=== PATIENT | female | born 1970 | race Caucasian/White ===

== ENCOUNTER 2021-02-20 09:15 | Inpatient (IN) | payer OTHER ==
[~2021-02-20] VITALS: Ht 175.3 cm; Wt 126.0 kg
[2021-02-20 14:45] LABS: BASOPHILS # (AUTO) 0.1 X10'3 (0-0.2); BASOPHILS % (AUTO) 0.8 % (0-1); EOSINOPHILS # (AUTO) 0.1 X10'3 (0-0.9); EOSINOPHILS % (AUTO) 1.5 % (0-6); LYMPHOCYTES # (AUTO) 2.7 X10'3 (1.1-4.8); MEAN CORPUSCULAR HEMOGLOBIN 28.3 PG (27.0-31.0); MEAN CORPUSCULAR HGB CONC 33.8 g/dL (33.0-36.5); MEAN CORPUSCULAR VOLUME 83.5 FL (78-98); MEAN PLATELET VOLUME 6.9 FL (7.4-10.4); MONOCYTES # (AUTO) 0.4 X10'3 (0-0.9); MONOCYTES % (AUTO) 5.3 % (2-12); NEUTROPHILS # (AUTO) 3.4 X10'3 (1.8-7.7); NEUTROPHILS % (AUTO) 51.4 % (42-75); PRE OP HEMATOCRIT 39.9 % (35.0-45.0); PRE OP HEMOGLOBIN 13.5 g/dL (12.0-16.0); PRE OP PLATELET COUNT 498 X10'3 (140-440); RED BLOOD COUNT 4.78 X10'6 (4.20-5.60); RED CELL DISTRIBUTION WIDTH 13.9 % (11.5-14.5)
[2021-02-20] MEDS ORDERED: LISI20TA28 PO (14:55)
[2021-02-20] MEDS ORDERED: IBUP-1984 PO (14:55)
[2021-02-20] MEDS ORDERED: HYDR-3965 PO (14:55)
[2021-02-20] MEDS ORDERED: HYDR12.55 PO (14:55)
[2021-02-20] MEDS ORDERED: CELE-193 PO (14:55)
[2021-02-20 14:57] LABS: ALBUMIN 3.7 G/DL (3.4-5.0); ALBUMIN/GLOBULIN RATIO 0.8 (1.1-1.5); ALKALINE PHOSPHATASE 60 IU/L (46-116); BLOOD UREA NITROGEN 17 MG/DL (7-18); BUN/CREATININE RATIO 27.4 (6.6-38.0); CALCIUM 9.4 MG/DL (8.5-10.1); CHLORIDE 106 MMOL/L (99-107); CREATININE 0.62 MG/DL (0.40-0.90); PRE OP ALT 36 U/L (30-65); PRE OP ANION GAP 10 (8-16); PRE OP AST 16 U/L (10-37); PRE OP BILIRUB, TOTAL 0.3 MG/DL (0.0-1.0); PRE OP GLUCOSE 90 MG/DL (70-104); PRE OP POTASSIUM 3.6 MMOL/L (3.4-5.1); PRE OP SODIUM 144 MMOL/L (135-145); TOTAL CARBON DIOXIDE 27.9 MMOL/L (24-32); TOTAL PROTEIN 8.4 G/DL (6.4-8.2); eGFR > 90 ML/MIN
[2021-02-27] VITALS (18 sets, daily range): BP systolic 119–172; BP diastolic 69–108
[2021-02-27] MEDS ORDERED: ringers solution, lacted 1,000 ML IV SCH ×2 (05:00→07:50)
[2021-02-27] MEDS ORDERED: tranexamic acid 650mg tablet PO ONE (05:30)
[2021-02-27] MEDS ORDERED: ceFAZolin inj. 3,000 MG in normal saline 100ml IV soln 100 ML IV ONE (05:30)
[2021-02-27] MEDS ORDERED: vancomycin 1,500 MG in NS 300ml IV soln IV ONE (05:30)
[2021-02-27] MEDS ORDERED: famotidine 20mg tablet PO ONE (05:30)
[2021-02-27] MEDS ORDERED: ROPIVAcaine 0.5% (5mg/ml) 30ml vial ONE (06:42)
[2021-02-27] MEDS ORDERED: ketorolac trometh. 30mg/ml inj. ONE (06:42)
[2021-02-27] MEDS ORDERED: tetracaine 1% (10mg/ml) pres. free inj. ONE (07:14)
[2021-02-27] MEDS ORDERED: fentaNYL/PF 50MCG/1 ML 2ML syringe ONE ×2 (07:16→08:06)
[2021-02-27] MEDS ORDERED: MIDAZolam 1 MG/ML 5ML VIAL ONE (07:16)
[2021-02-27] MEDS ORDERED: diphenhydrAMINE 50 mg/ml inj ONE (07:45)
[2021-02-27] MEDS ORDERED: proCHLORperazine 10 MG/2 ml inj IV PRN (07:50)
[2021-02-27] MEDS ORDERED: morphine 2 MG/ML inj. syringe IV PRN (07:50)
[2021-02-27] MEDS ORDERED: ROPIVAcaine 0.2% (10 MG/5 ML) BOLUS INJECTION ADDCANAL PRN (07:50)
[2021-02-27] MEDS ORDERED: ondansetron/PF 4mg/2ml inj IV PRN ×2 (07:50→10:05)
[2021-02-27] MEDS ORDERED: morphine 4 MG/ML inj SYRINge IV PRN (07:50)
[2021-02-27] MEDS ORDERED: meperidine/PF 25mg/ml syringe IV PRN ×3 (07:50)
[2021-02-27] MEDS ORDERED: ketamine 50mg/5ml syringe ONE (08:49)
[2021-02-27] MEDS ORDERED: acetaminophen 1,000mg/100ml IV 100 ML IV ONE (09:46)
[2021-02-27] MEDS ORDERED: propofol inj 20 ML IV ONE ×2 (09:46)
[2021-02-27] MEDS ORDERED: LIDOcaine 2% (20mg/ml) 5ml vial ONE (09:46)
--- NOTE | 2021-02-27 10:00 | NUR ---
PT ARRIVED FROM OR VIA BED ACCOMPANIED BY DR. DUPONT-ANESTHESIA, REPORT GIVEN, VSS, DENIES PAIN, DRSG TO LEFT KNEE-CDI WITH POWDER PACK, ON-Q CATHETER PRESENT, +PEDAL PULSES BILAT, SENSATION CURRENTLY AT T-9, SCDS ON, F/C PRESENT-DRAINING WELL, PIV RIGHT HAND 20G-LR RUNNING AT 100ML/HR
[2021-02-27] MEDS ORDERED: acetaminophen 325mg tablet PO PRN (10:05)
[2021-02-27] MEDS ORDERED: HYDROmorphone inj. 0.5 MG/0.5 ML DISP.SYRIN IV PRN (10:05)
[2021-02-27] MEDS ORDERED: diphenhydrAMINE 25mg capsule PO PRN ×2 (10:05)
[2021-02-27] MEDS: potassium cl 20mEq in 1/2 NS 1,000 ML IV SCH ×2 (10:05→16:11)
[2021-02-27] MEDS ORDERED: oxyCODONE IR 5mg (immed. release) tablet PO PRN (10:05)
[2021-02-27] MEDS ORDERED: ibuprofen tablet 400 MG TABLET PO PRN (10:05)
[2021-02-27] MEDS ORDERED: magnesium hydroxide 30ml (MOM) UD suspension PO PRN (10:05)
[2021-02-27] MEDS ORDERED: HYDROmorphone 1 mg/ml syringe IV PRN (10:05)
[2021-02-27] MEDS ORDERED: bisacodyl 10mg suppository rectal RC PRN (10:05)
[2021-02-27] MEDS ORDERED: celeCOXIB 100mg capsule PO PRN (10:05)
[2021-02-27] MEDS ORDERED: HYDROcodone/acetaminophen 5mg/325mg tablet PO PRN (10:05)
[2021-02-27] MEDS: ROPIVAcaine 0.2%/PF PUMP/bolus 545 ML ADDCANAL SCH (10:51)
--- NOTE | 2021-02-27 11:10 | NUR ---
PT DOING WELL, STILL HAS DIMINISHED SENSATION NOTED TO BE INTACT ABOVE L1, DENIES PAIN, +2 PEDAL PULSES BLE, SCDS ON, LEFT KNEE DRSG-CDI WITH POWDER PACK, ON-Q ATTACHED BUT NOT RUNNING BC IS NOT NEEDED YET-PT EDUCATED REGARDING USE, F/C IN PLACE-DRAINING WELL, PIV 20G TO UE-LR RUNNING AT 100ML/HR, REPORT CALLED TO MARYANN RODRIGUEZ-ALL QUESTIONS ANSWERED, TAKEN WITH ALL BELONGINGS TO ROOM 340B
--- NOTE | 2021-02-27 11:20 | NUR ---
Pt. arrived. Oriented to room, call light provided. Pt. has no pain, can not feel her legs. Bilateral pedal pulses. VSS and post ops VS set up by NA. Water provided to pt. Visitor at bedside.
[2021-02-27] MEDS: oxyCODONE IR 5mg (immed. release) tablet PO PRN (13:37)
[2021-02-27] MEDS: gabapentin 300mg capsule PO SCH ×2 (13:38→21:28)
[2021-02-27] MEDS: acetaminophen 325mg tablet PO SCH ×2 (13:38→19:23)
[2021-02-27] MEDS: ceFAZolin/D5W- 1GM premix 50 ML IV SCH ×2 (16:11→23:21)
--- NOTE | 2021-02-27 16:19 | NUR ---
Positive pulses. Pt. has feeling in bilateral feet sensation again. She had been doing ankle pumps, leg raises, and gluteus clenches and she is preparing to ambulate. Pt. does not c/o any pain and states she feels comfortable. Visitors at bedside.
--- NOTE | 2021-02-27 18:26 | NUR ---
Gave report to Guillermina RODRIGUEZ.
--- NOTE | 2021-02-27 18:36 | NUR ---
Patient in room [facility] 340. I have received report from Delilah and had the opportunity to ask questions and assume patient care.
--- NOTE | 2021-02-27 18:42 | NUR ---
Patient in room [facility] 340. I have received report from Delilah RODRIGUEZ and had the opportunity to ask questions and assume patient care.
[2021-02-27] MEDS ORDERED: vancomycin/NS 1 GM ADD-VANTAGE 250 ML IV SCH (20:00)
--- NOTE | 2021-02-27 20:37 | NUR ---
Student documentation: I have reviewed interventions, assessments performed and documented by ZACKERY De La Torre [facility].
[2021-02-27] MEDS ORDERED: lisinopril 20mg tablet PO SCH (21:00)
[2021-02-27] MEDS ORDERED: sennosides 8.6mg tablet PO SCH (21:00)
[2021-02-28] MEDS: acetaminophen 325mg tablet PO SCH ×3 (01:04→14:02)
[2021-02-28] MEDS: oxyCODONE IR 5mg (immed. release) tablet PO PRN ×3 (01:05→11:45)
[2021-02-28] MEDS: potassium cl 20mEq in 1/2 NS 1,000 ML IV SCH ×2 (02:05→04:46)
[2021-02-28 04:00] VITALS: BP 147/91
--- NOTE | 2021-02-28 06:11 | NUR ---
Student documentation: I have reviewed and agree with all interventions, assessments performed and documented by Kiarra Jin [employer] student.
--- NOTE | 2021-02-28 06:12 | NUR ---
Problems reprioritized. Patient report given, questions answered & plan of care reviewed with Delilah RODRIGUEZ.
--- NOTE | 2021-02-28 06:12 | NUR ---
Student documentation: I have reviewed and agree with all interventions, assessments performed and documented by Josiane Hernandez [facility] student.
--- NOTE | 2021-02-28 06:13 | NUR ---
Problems reprioritized. Patient report given, questions answered & plan of care reviewed with
[2021-02-28 06:56] LABS: ANION GAP 9 (8-16); CHLORIDE 107 MMOL/L (99-107); POTASSIUM 3.8 MMOL/L (3.5-5.1); SODIUM 144 MMOL/L (135-145); TOTAL CARBON DIOXIDE 28.3 MMOL/L (24-32)
[2021-02-28 07:00] VITALS: BP 148/91
[2021-02-28 07:15] LABS: BASOPHILS % (AUTO) 0.3 % (0-1); EOSINOPHILS # (AUTO) 0.2 X10'3 (0-0.9); EOSINOPHILS % (AUTO) 1.7 % (0-6); HEMOGLOBIN 11.5 g/dl (12.0-16.0); LYMPHOCYTES # (AUTO) 2.7 X10'3 (1.1-4.8); MEAN CORPUSCULAR HEMOGLOBIN 28.8 PG (27.0-31.0); MEAN CORPUSCULAR VOLUME 84.7 FL (78-98); MEAN PLATELET VOLUME 7.2 FL (7.4-10.4); MONOCYTES # (AUTO) 0.7 X10'3 (0-0.9); MONOCYTES % (AUTO) 6.9 % (2-12); NEUTROPHILS # (AUTO) 6.2 X10'3 (1.8-7.7); NEUTROPHILS % (AUTO) 63.1 % (42-75); PLATELET COUNT 413 X10'3 (140-440); RED BLOOD COUNT 4.01 X10'6 (4.20-5.60); RED CELL DISTRIBUTION WIDTH 14.2 % (11.5-14.5); WHITE BLOOD COUNT 9.7 X10'3 (4.5-11.0)
--- NOTE | 2021-02-28 07:15 | NUR ---
Pagebabita CM for chelsea
[2021-02-28] MEDS: gabapentin 300mg capsule PO SCH ×2 (07:47→14:02)
[2021-02-28] MEDS ORDERED: HYDROchlorothiazide 12.5mg capsule PO SCH (08:00)
[2021-02-28] MEDS ORDERED: aspirin 325mg tablet PO SCH (08:30)
[2021-02-28] MEDS ORDERED: sennosides 8.6mg tablet PO ONE (11:30)
[2021-02-28 12:07] VITALS: BP 147/72
[2021-02-28] MEDS: ROPIVAcaine 0.2%/PF PUMP/bolus 545 ML ADDCANAL SCH (14:04)
--- NOTE | 2021-02-28 14:50 | NUR ---
Reviewed discharge paperwork with pt. She and spouse had opportunities to ask questions. On-Q ball replaced. Bandage on L knee replaced and extra bandages provided. Education on incision care and infection control techniques provided in written and verbal form with good feedback. Pt. knows to f/u with Debbie and has contact information. She has had extensive education on exercise and has a walker and pain medication at home. No new prescriptions were ordered at the hospital and pt. already knows to take ASA daily. Pt. gathered her belongings and was escorted in a w/c downstairs where her drove her home in his private vehicle. Addendum: 02/28/21 at 1603 by Delilah Morrison RN IV was DC'd, cannula intact, no s/sx bleeding noted, and pressure bandage applied. Pain medication was also given before discharge.
[2021-02-28] MEDS ORDERED: celeCOXIB 100mg capsule PO SCH (20:00)
[2021-03-01] MEDS ORDERED: acetaminophen 325mg tablet PO PRN (10:05)
== END 2021-02-28 14:50 | disposition home or self-care (01) | DRG 470 ==
LOC: UNDOADMIN 02-27 05:31 → PAS IN 02-27 05:31 → SUR 3N 02-27 10:05 → PAS IN 02-27 10:05
PROVIDERS: ADMIT Orthopaedic Surgery; ATTEND Orthopaedic Surgery
PROC: 8E0YXBZ Computer Assisted Procedure of Lower Extremity (ICD-10-PCS; 2021-02-27)
PROC: 8E0Y0CZ Robotic Assisted Procedure of Lower Extremity, Open Approach (ICD-10-PCS; 2021-02-27)
PROC: 3E0T3BZ Introduction of Anesthetic Agent into Peripheral Nerves and Plexi, Percutaneous Approach (ICD-10-PCS; 2021-02-27)
PROC: 0SRD0J9 Replacement of Left Knee Joint with Synthetic Substitute, Cemented, Open Approach (ICD-10-PCS; principal; 2021-02-27 07:45)
DX: M17.2 Bilateral post-traumatic osteoarthritis of knee (principal); D62 Acute posthemorrhagic anemia; Z79.899 Other long term (current) drug therapy
CPT/HCPCS: Z7506; Z7508; 36415; 80051; 80053; 82948; 85025; 87081; 97116; 97161; 97530; A4215; A4618; A6258; C1713; C1758; C1776; G0378; J0131; J0690; J1170; J1200; J1885; J2001; J2250; J2704; J2795; J3010; J3370; J3480; J7040; J7120

== ENCOUNTER 2023-03-11 07:38 | Inpatient (IN) | payer OTHER ==
[2023-03-05 12:36] LABS: BASOPHILS % (AUTO) 0.6 % (0-1); EOSINOPHILS # (AUTO) 0.1 X10'3 (0-0.9); EOSINOPHILS % (AUTO) 1.1 % (0-6); LYMPHOCYTES # (AUTO) 2.6 X10'3 (1.1-4.8); LYMPHOCYTES % (AUTO) 34.7 % (21-51); MEAN CORPUSCULAR HEMOGLOBIN 28.7 PG (27.0-31.0); MEAN CORPUSCULAR HGB CONC 33.7 g/dL (33.0-36.5); MEAN CORPUSCULAR VOLUME 85.2 FL (78-98); MEAN PLATELET VOLUME 7.2 FL (7.4-10.4); MONOCYTES # (AUTO) 0.4 X10'3 (0-0.9); MONOCYTES % (AUTO) 4.7 % (2-12); NEUTROPHILS # (AUTO) 4.4 X10'3 (1.8-7.7); NEUTROPHILS % (AUTO) 58.9 % (42-75); PRE OP HEMATOCRIT 41.1 % (35.0-45.0); PRE OP HEMOGLOBIN 13.8 g/dL (12.0-16.0); PRE OP PLATELET COUNT 396 X10'3 (140-440); PRE OP WHITE BLOOD COUNT 7.5 10'3 (4.8-10.8); RED BLOOD COUNT 4.82 X10'6 (4.20-5.60); RED CELL DISTRIBUTION WIDTH 13.6 % (11.5-14.5)
[2023-03-05 12:59] LABS: ALBUMIN 3.8 G/DL (3.4-5.0); ALKALINE PHOSPHATASE 59 IU/L (46-116); BLOOD UREA NITROGEN 15 MG/DL (7-18); BUN/CREATININE RATIO 20.8 (10.0-20.0); CALCIUM 9.2 MG/DL (8.5-10.1); CHLORIDE 103 MMOL/L (99-107); CREATININE 0.72 MG/DL (0.40-0.90); PRE OP ALT 36 U/L (30-65); PRE OP ANION GAP 8 (8-16); PRE OP AST 19 U/L (10-37); PRE OP BILIRUB, TOTAL 0.4 MG/DL (0.0-1.0); PRE OP GLUCOSE 92 MG/DL (70-104); PRE OP POTASSIUM 3.5 MMOL/L (3.4-5.1); PRE OP SODIUM 138 MMOL/L (135-145); TOTAL CARBON DIOXIDE 26.9 MMOL/L (24-32); TOTAL PROTEIN 7.7 G/DL (6.4-8.2); eGFR 85 ML/MIN
[2023-03-11] VITALS (32 sets, daily range): BP systolic 114–155; BP diastolic 62–100; PULSE 71–107; RESP 12–24; TEMP 97.4–98.3; O2SAT 91–100
[~2023-03-11] VITALS: Ht 175.3 cm; Wt 129.3 kg
[~2023-03-11 07:38] MED LIST: D-MA1POW PO; DIPH25CA83 PO; EST1T PO; ESTR10TA4 VG; HYDR-3964 PO; HYDR12.55 PO; LACT1CAP65 PO; LISI20TA28 PO; MAGN500C4 PO; OXYB5TAB16 PO; PROG100C11 PO; [UNRECOGNIZED DRUG - OTHER]; ceFAZolin inj. 3,000 MG in normal saline 100ml IV soln 100 ML IV ONE; famotidine 20mg tablet PO ONE; ringers solution, lacted 1,000 ML IV SCH; tetracaine 1% (10mg/ml) pres. free inj. ONE; tranexamic acid 650mg tablet PO ONE; vancomycin 1,500 MG in NS 300ml IV soln IV ONE
--- NOTE | 2023-03-11 07:45 | NUR ---
TOTAL JOINT CHARTING: PT COMPLETED 5 DAYS HIBICLENS SHOWERS AND MUPIROCIN OINTMENT. READ THE BOOKLET, DID NOT WATCH THE TOTAL JOINT VIDEO ONLINE. RIGHT DORSAL PEDALIS PULSE STRONG AND MARKED, [facility]'S WNL. Addendum: 03/11/23 at 0945 by Zonia Bullock RN Amended: Links added.
[2023-03-11] MEDS ORDERED: BUPIVACAINE/MELOXICAM 14 ML VIAL IL ONE ×2 (09:47→12:13)
[2023-03-11] MEDS ORDERED: HYDROcodone/acetaminophen 10/325mg tab PO PRN (09:55)
[2023-03-11] MEDS ORDERED: MIDAZolam 1mg/ml 10ml vial ONE (10:17)
[2023-03-11] MEDS ORDERED: fentaNYL/PF 50MCG/1 ML 2ML syringe ONE (10:17)
[2023-03-11] MEDS ORDERED: BUPIVAcaine/dex-water/PF 7.5 mg/ml 2ml ampul ONE (10:55)
[2023-03-11] MEDS ORDERED: desflurane 240ml liquid inh. IH ONE (10:55)
[2023-03-11] MEDS ORDERED: dexamethasone sod phosphate 10mg/ml inj ONE (10:55)
[2023-03-11] MEDS ORDERED: MIDAZolam 1 MG/ML 5ML VIAL ONE ×3 (11:39)
[2023-03-11] MEDS ORDERED: ondansetron/PF 4mg/2ml inj ONE (11:56)
[2023-03-11] MEDS ORDERED: ROPIVAcaine 0.5% (5mg/ml) 30ml vial ONE (11:57)
[2023-03-11] MEDS ORDERED: propofol inj 20 ML IV ONE ×2 (11:57)
[2023-03-11] MEDS ORDERED: LIDOcaine 2% (20mg/ml) 5ml vial ONE (11:57)
[2023-03-11] MEDS ORDERED: labetalol 20mg/4ml (5mg/ml) syringe IV PRN (12:15)
[2023-03-11] MEDS ORDERED: ringers solution, lacted 1,000 ML IV SCH (12:15)
[2023-03-11] MEDS ORDERED: hydrALAZINE 20mg/ml inj. IV PRN (12:15)
[2023-03-11] MEDS ORDERED: morphine 4 MG/ML inj SYRINge IV PRN (12:15)
[2023-03-11] MEDS ORDERED: fentaNYL/PF 50MCG/1 ML 2ML syringe IV PRN ×2 (12:15)
[2023-03-11] MEDS ORDERED: morphine 2 MG/ML inj. syringe IV PRN (12:15)
[2023-03-11] MEDS ORDERED: ondansetron/PF 4mg/2ml inj IV PRN ×2 (12:15→13:05)
[2023-03-11] MEDS ORDERED: diphenhydrAMINE 25mg capsule PO PRN ×2 (13:05)
[2023-03-11] MEDS ORDERED: oxybutynin 5mg tablet PO PRN (13:05)
[2023-03-11] MEDS ORDERED: bisacodyl 10mg suppository rectal RC PRN (13:05)
[2023-03-11] MEDS ORDERED: acetaminophen 325mg tablet PO PRN (13:05)
[2023-03-11] MEDS ORDERED: HYDROmorphone inj. 0.5 MG/0.5 ML DISP.SYRIN IV PRN (13:05)
[2023-03-11] MEDS ORDERED: naloxone 0.4 mg/ml inj IV PRN (13:05)
[2023-03-11] MEDS ORDERED: magnesium hydroxide 30ml (MOM) UD suspension PO PRN (13:05)
[2023-03-11] MEDS ORDERED: HYDROmorphone 1 mg/ml syringe IV PRN (13:05)
[2023-03-11] MEDS ORDERED: oxyCODONE IR 5mg (immed. release) tablet PO PRN (13:05)
--- NOTE | 2023-03-11 13:15 | NUR ---
DERMATOME LEVEL T12 Addendum: 03/11/23 at 1437 by Darlyn Arriaza RN Amended: Links added.
--- NOTE | 2023-03-11 13:15 | NUR ---
Received from OR via BED IN STABLE CONDITION , accompanied by Anesthesiologist and BEATER LEAD report given by BEATER LEAD AND Anesthesiolgist. Addendum: 03/11/23 at 1408 by Darlyn Arriaza RN Amended: Links added.
[2023-03-11] MEDS: acetaminophen 325mg tablet PO SCH ×2 (14:00→20:53)
--- NOTE | 2023-03-11 14:38 | NUR ---
DERMATOME LEVEL L3. Addendum: 03/11/23 at 1438 by Darlyn Arriaza RN Amended: Links added.
--- NOTE | 2023-03-11 15:10 | NUR ---
REPORT GIVEN TO JENNIFER KRISHNA - ALL QUESTIONS, COMMENTS AND CONCERNS WERE ANSWERED AT THIS TIME. PATIENT WILL BE TRANSFERRED UP TO ROOM ONCE ROOM IS READY.
--- NOTE | 2023-03-11 15:20 | NUR ---
Patient in room PAS IN 900. I have received report from kalpesh garcia in recovery and had the opportunity to ask questions and assume patient care.
[2023-03-11] MEDS ORDERED: acetaminophen 1,000mg/100ml IV 100 ML IV STA (15:31)
[2023-03-11] MEDS: oxyCODONE IR 5mg (immed. release) tablet PO PRN ×2 (15:36→21:06)
[2023-03-11] MEDS: potassium cl 20mEq in 1/2 NS 1,000 ML IV SCH (16:00)
--- NOTE | 2023-03-11 16:20 | NUR ---
DERMATOME LEVEL L5 Addendum: 03/11/23 at 1621 by Darlyn Arriaza RN Amended: Links added.
--- NOTE | 2023-03-11 16:25 | NUR ---
PATIENT DISCHARGED FROM PACU IN STABLE CONDITION AFTER REPORT GIVEN TO RN TAKING OVER PATIENTS CARE. PATIENT TRANSFERRED TO ROOM 402 VIA BED WITH RN X2. Addendum: 03/11/23 at 1638 by Darlyn Arriaza RN Amended: Links added.
--- NOTE | 2023-03-11 16:40 | NUR ---
pt arrived to the floor
--- NOTE | 2023-03-11 18:27 | NUR ---
Page Sent PAGER ID: [phone] MESSAGE: MESSAGE: [id number] [address] [place], second page pt groin area is oozing , i applied some gauze it was like red purulent drainage from small opening. robby [email or web address] Addendum: 03/11/23 at 1829 by Robby Patel RN disregard incorrect pt.
--- NOTE | 2023-03-11 18:30 | NUR ---
Patient in room ORTHO 4021. I have received report from JENNIFER Petty and had the opportunity to ask questions and assume patient care.
[2023-03-11] MEDS: ceFAZolin/D5W- 1GM premix 50 ML IV SCH (18:34)
[2023-03-11] MEDS ORDERED: vancomycin/NS 1 GM ADD-VANTAGE 250 ML IV SCH (20:00)
[2023-03-11] MEDS ORDERED: lactobacillus rhamnosus 10,000 MMU CELLS/CAPSULE PO SCH (21:00)
[2023-03-11] MEDS ORDERED: lisinopril 20mg tablet PO SCH (21:00)
[2023-03-11] MEDS ORDERED: sennosides 8.6mg tablet PO SCH (21:00)
[2023-03-11] MEDS ORDERED: D MANNOSE PO SCH (21:00)
[2023-03-11] MEDS ORDERED: magnesium oxide 400mg tablet PO SCH (21:00)
[2023-03-11] MEDS ORDERED: diphenhydrAMINE 25mg capsule PO SCH (21:00)
--- NOTE | 2023-03-11 22:00 | NUR ---
pt assisted up to bedside commode. did well. more feeling to the R leg.
[2023-03-12] MEDS: potassium cl 20mEq in 1/2 NS 1,000 ML IV SCH ×2 (00:03→08:00)
[2023-03-12] MEDS: ceFAZolin/D5W- 1GM premix 50 ML IV SCH (00:21)
[2023-03-12 02:00] VITALS: BP 110/63; PULSE 83; RESP 15; TEMP 98.7; O2SAT 97
[2023-03-12] MEDS: acetaminophen 325mg tablet PO SCH ×3 (02:00→14:27)
[2023-03-12 06:00] VITALS: BP 109/69; PULSE 85; RESP 18; TEMP 97.9; O2SAT 97
--- NOTE | 2023-03-12 06:35 | NUR ---
Problems reprioritized. Patient report given, questions answered & plan of care reviewed with JENNIFER Petty.
--- NOTE | 2023-03-12 06:54 | NUR ---
Patient in room ORTHO 4021. I have received report from JODEE RODRIGUEZ and had the opportunity to ask questions and assume patient care.
[2023-03-12] MEDS ORDERED: HYDROchlorothiazide 12.5mg capsule PO SCH (08:00)
[2023-03-12] MEDS ORDERED: [UNRECOGNIZED DRUG - OTHER] SCH (08:00)
[2023-03-12] MEDS ORDERED: progesterone, micronized 100mg capsule PO SCH (08:00)
[2023-03-12 08:14] LABS: BASOPHILS % (AUTO) 0.2 % (0-1); EOSINOPHILS % (AUTO) 0 % (0-6); HEMATOCRIT 33.7 % (35.0-45.0); HEMOGLOBIN 11.3 g/dl (12.0-16.0); LYMPHOCYTES # (AUTO) 1.7 X10'3 (1.1-4.8); LYMPHOCYTES % (AUTO) 15.1 % (21-51); MEAN CORPUSCULAR HEMOGLOBIN 28.5 PG (27.0-31.0); MEAN CORPUSCULAR HGB CONC 33.4 g/dL (33.0-36.5); MEAN CORPUSCULAR VOLUME 85.3 FL (78-98); MEAN PLATELET VOLUME 7.3 FL (7.4-10.4); MONOCYTES # (AUTO) 0.8 X10'3 (0-0.9); MONOCYTES % (AUTO) 6.7 % (2-12); NEUTROPHILS # (AUTO) 8.8 X10'3 (1.8-7.7); PLATELET COUNT 336 X10'3 (140-440); RED BLOOD COUNT 3.95 X10'6 (4.20-5.60); RED CELL DISTRIBUTION WIDTH 13.7 % (11.5-14.5); WHITE BLOOD COUNT 11.3 X10'3 (4.5-11.0)
[2023-03-12] MEDS ORDERED: aspirin 325mg tablet PO SCH (08:30)
[2023-03-12 08:34] LABS: ANION GAP 7 (8-16); CHLORIDE 104 MMOL/L (99-107); POTASSIUM 3.8 MMOL/L (3.5-5.1); SODIUM 137 MMOL/L (135-145); TOTAL CARBON DIOXIDE 25.9 MMOL/L (24-32)
[2023-03-12 10:00] VITALS: BP 143/81; PULSE 86; RESP 16; TEMP 98.1; O2SAT 95
--- NOTE | 2023-03-12 13:06 | NUR ---
Per EMR pt POD #1 s/p right TKA, pending discharge at this time. Written protein education with RD contact information placed in patient's chart. Will remain available. Addendum: 03/12/23 at [address] Amended: Links added.
--- NOTE | 2023-03-12 13:08 | NUR ---
Per EMR pt POD #1 s/p right TKA, pending discharge at this time. Written protein education with RD contact information placed in patient's chart. Will remain available. Addendum: 03/12/23 at [address] Amended: Links added.
[2023-03-12 14:27] VITALS: RESP 18
[2023-03-12] MEDS: oxyCODONE IR 5mg (immed. release) tablet PO PRN (14:27)
--- NOTE | 2023-03-12 15:40 | NUR ---
pt stable for dc, iv dc cannula is intact, dressing changed per md and extra dressing given to pt, all dc info gone over and signed, pt prearranged medication were picked up, all belongings take, ice packs and wraps take, pt was wheeled down to the lobby and left in a private vehicle with family.
[2023-03-12] MEDS ORDERED: celeCOXIB 100mg capsule PO SCH (20:00)
[2023-03-13] MEDS ORDERED: ESTRADIOL 10 MCG VG SCH (08:00)
[2023-03-13] MEDS ORDERED: acetaminophen 325mg tablet PO PRN (13:05)
== END 2023-03-12 15:03 | disposition home or self-care (01) | DRG 470 ==
LOC: PAS IN 07:38 → ORTHO 4S 16:33
PROVIDERS: ADMIT Orthopaedic Surgery; ATTEND Orthopaedic Surgery
PROC: 8E0YXBZ Computer Assisted Procedure of Lower Extremity (ICD-10-PCS; 2023-03-11)
PROC: 8E0Y0CZ Robotic Assisted Procedure of Lower Extremity, Open Approach (ICD-10-PCS; 2023-03-11)
PROC: 3E0T3BZ Introduction of Anesthetic Agent into Peripheral Nerves and Plexi, Percutaneous Approach (ICD-10-PCS; 2023-03-11)
PROC: 3E0T33Z Introduction of Anti-inflammatory into Peripheral Nerves and Plexi, Percutaneous Approach (ICD-10-PCS; 2023-03-11)
PROC: 0SRC0J9 Replacement of Right Knee Joint with Synthetic Substitute, Cemented, Open Approach (ICD-10-PCS; principal; 2023-03-11 10:55)
DX: M17.0 Bilateral primary osteoarthritis of knee (principal); Z68.41 Body mass index [BMI] 40.0-44.9, adult; I10 Essential (primary) hypertension; E66.01 Morbid (severe) obesity due to excess calories; Z79.899 Other long term (current) drug therapy; Z88.1 Allergy status to other antibiotic agents; Z87.891 Personal history of nicotine dependence
CPT/HCPCS: Z7506; Z7508; 36415; 80051; 80053; 82948; 85025; 87081; 97116; 97161; 97530; A4215; A6258; A6449; A7000; C1713; C1776; G0378; J0131; J0690; J1100; J2250; J2270; J2405; J2704; J2795; J3010; J3370; J3480; J3490; J7120; Q0163